=== PATIENT | female | born 1935 | race African-American/Black ===

== ENCOUNTER 2019-01-06 17:51 | Inpatient (IN) | payer MEDICARE, MEDICAID ==
[~2019-01-06] VITALS: Ht 154.9 cm; Wt 62.2 kg
[2019-01-06] VITALS: BP 159/70
[~2019-01-06 17:51] MED LIST: ACET-2178 PO; APIX5TAB PO; ASPIRIN PO; DIAZ5TAB4 PO; DOXY150T9 PO; LATA2.5D2 EACHEYE; LEVO25TA2 PO; Lactaid PO; METO-385 PO; Probiotics PO; ROSU10TA25 PO; VALS160T28 PO; [UNRECOGNIZED DRUG - MIXTURE] PO
[2019-01-06] MEDS ORDERED: ONDANSETRON HCL 4MG/2ML INJ IM ONE (18:30)
[2019-01-06] MEDS ORDERED: MORPHINE SULFATE 4 MG/ML CPJ (NOT FOR IM USE) IV ONE ×2 (18:30→22:00)
[2019-01-06] MEDS ORDERED: MORPHINE SULFATE 4 MG/ML CPJ (NOT FOR IM USE) IV STA ×2 (18:38→20:29)
[2019-01-06] MEDS ORDERED: ONDANSETRON HCL 4MG/2ML INJ IV STA ×2 (18:38→20:29)
[2019-01-06 19:53] LABS: *AMPHETAMINES SCREEN URINE NEGATIVE (NEGATIVE); *BARBITURATES SCREEN URINE NEGATIVE (NEGATIVE); *BENZODIAZEPINES SCREEN URINE NEGATIVE (NEGATIVE); *COCAINE SCREEN URINE NEGATIVE (NEGATIVE)
[2019-01-06 19:54] LABS: CANNABINOID URINE SCREEN NEGATIVE (NEGATIVE); METHADONE URINE SCREEN NEGATIVE (NEGATIVE); OPIATES URINE SCREEN NEGATIVE (NEGATIVE); PHENCYCLIDINE URINE SCREEN NEGATIVE (NEGATIVE)
[2019-01-06 20:08] LABS: HEMATOCRIT. 37.2 % (36.0-48.0); HEMOGLOBIN. 12.6 g/dL (12.0-16.0); MEAN CORPUSCULAR HEMOGLOBIN 33.1 pg (28.0-32.0); MEAN PLATELET VOLUME 10.5 fl (7.4-10.4); PLATELET 176 x1000/uL (130-400); RED BLOOD CELL COUNT 3.79 mill/uL (4.2-5.4); RED CELL DISTRIBUTION WIDTH 13.4 % (11.6-14.6)
[2019-01-06 20:09] LABS: CHLORIDE 107 mEq/L (98-107)
[2019-01-06 20:23] LABS: D-DIMER 0.49 mg/L FEU (<0.50); INR 1.1; PARTIAL THROMBOPLASTIN TIME 32.5 sec (23.4-31.0); PROTHROMBIN TIME 10.8 sec (9.1-11.1)
[2019-01-06 21:10] LABS: PLATELET ESTIMATE NORMAL
[2019-01-06] MEDS ORDERED: HYDROMORPHONE HCL/PF 2MG/ML CPJ IV PRN (23:30)
[2019-01-06] MEDS ORDERED: ACETAMINOPHEN 325MG TABLET PO PRN (23:30)
[2019-01-06] MEDS ORDERED: ONDANSETRON HCL 4MG/2ML INJ IV PRN (23:30)
[2019-01-06] MEDS ORDERED: HYDROCODONE/ACETAMINOPHEN 5/325MG TABLET PO PRN (23:30)
[2019-01-06] MEDS ORDERED: CLONIDINE 0.1MG TABLET PO PRN (23:30)
[2019-01-06] MEDS ORDERED: IPRATROPIUM/ALBUTEROL 0.5-3(2.5)MG/3ML NEB INH PRN (23:30)
[2019-01-06] MEDS ORDERED: DOCUSATE SODIUM 100MG CAPSULE PO PRN (23:30)
[2019-01-06] MEDS ORDERED: MAGNESIUM/ALUMINUM HYDROXIDE/SIMETHICONE 30ML UDC PO PRN (23:30)
[2019-01-07] MEDS ORDERED: DEXTROSE 50% WATER 50ML SYRINGE IV PRN (00:30)
[2019-01-07] MEDS ORDERED: LOSA50TA20 PO (00:31)
[2019-01-07] MEDS ORDERED: DRON400T PO (00:31)
[2019-01-07 00:35] VITALS: BP 159/70
[2019-01-07 04:00] VITALS: BP 146/71
[2019-01-07] MEDS: BLOOD SUGAR DIAGNOSTIC STRIP TEST SCH ×4 (06:33→21:00)
[2019-01-07 07:46] LABS: CHLORIDE 107 mEq/L (98-107)
[2019-01-07] MEDS: INSULIN LISPRO 100 UNITS/ML SUBCUT SCH ×4 (07:50→21:00)
[2019-01-07 08:00] VITALS: BP 132/62
[2019-01-07 08:07] LABS: CREATINE KINASE 201 IU/L (26-192)
[2019-01-07 08:08] LABS: CREATINE KINASE MB FRACTION 2.9 ng/mL (0.5-3.6); LDL CHOLESTEROL 34 mg/dL (5-100)
[2019-01-07 08:09] LABS: HDL CHOLESTEROL 99 mg/dL (40-59)
[2019-01-07 08:13] LABS: BASOPHILS % 0.5 % (0.0-2.0); EOSINOPHILS % 0.3 % (0.0-5.0); HEMATOCRIT. 36.7 % (36.0-48.0); HEMOGLOBIN. 12.3 g/dL (12.0-16.0); MEAN CORPUSCULAR HEMOGLOBIN 32.9 pg (28.0-32.0); MEAN CORPUSCULAR VOLUME 98.1 fL (81.0-99.0); MEAN PLATELET VOLUME 10.4 fl (7.4-10.4); MONOCYTES % 13.8 % (2.0-8.0); NEUTROPHILS % 64.4 % (40.0-76.0); PLATELET 170 x1000/uL (130-400); RED BLOOD CELL COUNT 3.74 mill/uL (4.2-5.4); RED CELL DISTRIBUTION WIDTH 13.5 % (11.6-14.6)
[2019-01-07] MEDS ORDERED: AMLODIPINE 10MG TABLET PO SCH (09:00)
[2019-01-07 12:00] VITALS: BP 129/54
[2019-01-07] MEDS: APIXABAN 5 MG TABLET PO SCH (13:00)
[2019-01-07] MEDS: DIAZEPAM 5 MG TABLET PO SCH ×2 (13:42→17:00)
[2019-01-07] MEDS: LEVOTHYROXINE SODIUM 25MCG TABLET PO SCH (13:42)
[2019-01-07] MEDS: LOSARTAN POTASSIUM 50 MG TABLET PO SCH (13:42)
[2019-01-07 16:00] VITALS: BP 129/54
[2019-01-07 17:21] LABS: CREATINE KINASE 155 IU/L (26-192)
[2019-01-07 17:22] LABS: CREATINE KINASE MB FRACTION 2.3 ng/mL (0.5-3.6)
[2019-01-07 20:21] VITALS: BP 119/64
[2019-01-07] MEDS ORDERED: LATANOPROST 0.005% OPHTH DROPS 2.5ML EACHEYE SCH (21:00)
[2019-01-08 00:03] VITALS: BP 118/62
[2019-01-08 04:00] VITALS: BP 129/55
[2019-01-08 06:10] LABS: HEMATOCRIT. 34.4 % (36.0-48.0); HEMOGLOBIN. 11.8 g/dL (12.0-16.0); MEAN CORPUSCULAR HEMOGLOBIN 33.4 pg (28.0-32.0); MEAN CORPUSCULAR VOLUME 97.6 fL (81.0-99.0); MEAN PLATELET VOLUME 10.8 fl (7.4-10.4); PLATELET 166 x1000/uL (130-400); RED BLOOD CELL COUNT 3.52 mill/uL (4.2-5.4); RED CELL DISTRIBUTION WIDTH 13.5 % (11.6-14.6)
[2019-01-08] MEDS: LEVOTHYROXINE SODIUM 25MCG TABLET PO SCH (06:43)
[2019-01-08] MEDS: BLOOD SUGAR DIAGNOSTIC STRIP TEST SCH ×2 (06:44→12:52)
[2019-01-08] MEDS: INSULIN LISPRO 100 UNITS/ML SUBCUT SCH ×2 (07:11→12:50)
[2019-01-08 07:59] VITALS: BP 121/55
[2019-01-08 08:08] LABS: CHLORIDE 106 mEq/L (98-107)
[2019-01-08 08:15] LABS: LDL CHOLESTEROL 31 mg/dL (5-100)
[2019-01-08 08:17] LABS: HDL CHOLESTEROL 87 mg/dL (40-59)
[2019-01-08] MEDS: DIAZEPAM 5 MG TABLET PO SCH ×2 (08:43→12:52)
[2019-01-08] MEDS: APIXABAN 5 MG TABLET PO SCH (08:43)
[2019-01-08] MEDS: LOSARTAN POTASSIUM 50 MG TABLET PO SCH (08:44)
[2019-01-08 11:15] VITALS: BP 121/55
[2019-01-08 12:10] VITALS: BP 117/64
[2019-01-08 13:12] LABS: PLATELET ESTIMATE NORMAL
== END 2019-01-08 12:40 | disposition home or self-care (01) | DRG 206 ==
LOC: ER 17:51 → 6WST 20:46 → ENRESERV 22:30
PROVIDERS: ADMIT Hospitalist; ATTEND Hospitalist
DX: M94.0 Chondrocostal junction syndrome [Tietze] (principal); D68.59 Other primary thrombophilia; E78.5 Hyperlipidemia, unspecified; I48.0 Paroxysmal atrial fibrillation; E11.9 Type 2 diabetes mellitus without complications; I10 Essential (primary) hypertension; E03.9 Hypothyroidism, unspecified; E78.00 Pure hypercholesterolemia, unspecified; Z79.01 Long term (current) use of anticoagulants; Z82.49 Family history of ischemic heart disease and other diseases of the circulatory system; Z88.6 Allergy status to analgesic agent; Z88.8 Allergy status to other drugs, medicaments and biological substances; Z79.84 Long term (current) use of oral hypoglycemic drugs
CPT/HCPCS: 36415; 71045; 80061; 80305; 82550; 82553; 82962; 83735; 83880; 84443; 84484; 85379; 93005; 93306; 93970; 96374; 96375; 96376; 99285; J1170; J2270; J2405

== ENCOUNTER 2019-07-11 17:04 | Inpatient (IN) | payer MEDICARE, MEDICAID ==
[~2019-07-11] VITALS: Ht 154.9 cm; Wt 66.9 kg
[~2019-07-11 17:04] MED LIST changes: -ACET-2178 PO; -DOXY150T9 PO; +DRON400T PO; +LOSA50TA41 PO; -METO-385 PO; +TOPUD PO; -VALS160T28 PO
[2019-07-11] MEDS ORDERED: ONDANSETRON HCL 4MG/2ML INJ IV STA (17:48)
[2019-07-11] MEDS ORDERED: SODIUM CHLORIDE 0.9% 1,000 ML IV ONE (17:48)
[2019-07-11] MEDS ORDERED: LORAZEPAM 1MG TABLET PO ONE (18:00)
[2019-07-11 18:48] LABS: BASOPHILS % 0.9 % (0.0-2.0); EOSINOPHILS % 0.8 % (0.0-5.0); HEMATOCRIT. 37.3 % (36.0-48.0); HEMOGLOBIN. 12.6 g/dL (12.0-16.0); LYMPHOCYTES % 25.4 % (20.0-50.0); MEAN CORPUSCULAR HEMOGLOBIN 32.9 pg (28.0-32.0); MEAN CORPUSCULAR VOLUME 97.2 fL (81.0-99.0); MEAN PLATELET VOLUME 10.3 fl (7.4-10.4); MONOCYTES % 14.8 % (2.0-8.0); NEUTROPHILS % 58.1 % (40.0-76.0); PLATELET 190 x1000/uL (130-400); RED BLOOD CELL COUNT 3.84 mill/uL (4.2-5.4); RED CELL DISTRIBUTION WIDTH 13.2 % (11.6-14.6)
[2019-07-11 18:50] LABS: CHLORIDE 105 mEq/L (98-107)
[2019-07-11 18:54] LABS: PROTHROMBIN TIME 10.5 sec (9.6-11.0)
[2019-07-11 21:00] VITALS: BP 140/71
[2019-07-11 22:00] VITALS: BP 122/67
[2019-07-11] MEDS ORDERED: CLONIDINE 0.1MG TABLET PO PRN (22:00)
[2019-07-11] MEDS ORDERED: DIPHENHYDRAMINE 50MG/ML VIAL IV PRN (22:00)
[2019-07-11] MEDS ORDERED: ONDANSETRON HCL 4MG/2ML INJ IV PRN (22:00)
[2019-07-11] MEDS ORDERED: MAGNESIUM/ALUMINUM HYDROXIDE/SIMETHICONE 30ML UDC PO PRN (22:00)
[2019-07-11] MEDS ORDERED: LORAZEPAM 2MG/ML CPJ IV PRN (22:00)
[2019-07-11] MEDS ORDERED: IPRATROPIUM/ALBUTEROL 0.5-3(2.5)MG/3ML NEB HHN PRN (22:00)
[2019-07-11] MEDS ORDERED: MORPHINE SULFATE 2 MG/ML CPJ (NOT FOR IM USE) IV PRN (22:00)
[2019-07-11] MEDS ORDERED: DOCUSATE SODIUM 100MG CAPSULE PO PRN (22:00)
[2019-07-11] MEDS ORDERED: GUAIFENESIN 200MG/10ML SUGAR FREE UDC PO PRN (22:00)
[2019-07-11] MEDS ORDERED: NA PHOS,M-B/NA PHOS,DI-BA ENEMA 118ML PR PRN (22:00)
[2019-07-11] MEDS ORDERED: OLME20TA22 PO (23:25)
[2019-07-12] VITALS (15 sets, daily range): BP systolic 95–142; BP diastolic 48–71
[2019-07-12 01:09] LABS: CREATINE KINASE MB FRACTION 5.2 ng/mL (0.5-3.6)
[2019-07-12] MEDS ORDERED: MORPHINE SULFATE 2 MG/ML CPJ (NOT FOR IM USE) IV PRN (01:45)
[2019-07-12] MEDS ORDERED: LORAZEPAM 2MG/ML CPJ IV PRN ×2 (01:45→06:00)
[2019-07-12] MEDS: SODIUM CHLORIDE 0.9% INJ 3ML FLUSH IVF SCH ×3 (05:03→23:23)
[2019-07-12 06:16] LABS: CHLORIDE 107 mEq/L (98-107)
[2019-07-12 06:17] LABS: BASOPHILS % 0.8 % (0.0-2.0); EOSINOPHILS % 0.4 % (0.0-5.0); HEMATOCRIT. 34.8 % (36.0-48.0); HEMOGLOBIN. 11.9 g/dL (12.0-16.0); LYMPHOCYTES % 13.8 % (20.0-50.0); MEAN CORPUSCULAR HEMOGLOBIN 33.7 pg (28.0-32.0); MEAN CORPUSCULAR VOLUME 98.8 fL (81.0-99.0); MEAN PLATELET VOLUME 10.5 fl (7.4-10.4); MONOCYTES % 13.7 % (2.0-8.0); NEUTROPHILS % 71.3 % (40.0-76.0); PLATELET 178 x1000/uL (130-400); RED BLOOD CELL COUNT 3.52 mill/uL (4.2-5.4); RED CELL DISTRIBUTION WIDTH 13.6 % (11.6-14.6)
[2019-07-12 06:23] LABS: CREATINE KINASE 152 IU/L (26-192)
[2019-07-12 06:27] LABS: CREATINE KINASE MB FRACTION 4.9 ng/mL (0.5-3.6)
[2019-07-12] MEDS: ASPIRIN 81MG EC TABLET PO SCH (09:11)
[2019-07-12] MEDS ORDERED: NITROGLYCERIN 50MCG/ML 10ML VIAL (CATH LAB) IV ONE (10:00)
[2019-07-12] MEDS ORDERED: HEPARIN SODIUM 1,000 UNIT/1ML VIAL IV ONE (10:00)
[2019-07-12] MEDS ORDERED: NICARDIPINE 100MCG/ML 10ML VIAL (CATH LAB) IV ONE (10:00)
[2019-07-12] MEDS ORDERED: INFLUENZA VIRUS VACCINE(AFLURIA) 0.5ML SYR IM ONE (10:00)
[2019-07-12] MEDS ORDERED: FENTANYL CITRATE/PF 50MCG/ML 2ML VIAL ONE (12:57)
[2019-07-12] MEDS ORDERED: LIDOCAINE HCL 1% 20ML VIAL (Pyxis) INJ ONE (12:57)
[2019-07-12] MEDS ORDERED: IODIXANOL 320MG/ML 100 ML BOTTLE IV ONE (12:58)
[2019-07-12] MEDS ORDERED: MIDAZOLAM HCL 2 MG/2 ML VIAL ONE ×2 (12:58→13:33)
[2019-07-12] MEDS ORDERED: ACETAMINOPHEN 325MG TABLET PO PRN (14:30)
[2019-07-12] MEDS ORDERED: ATROPINE SULFATE 1MG/10ML SYR IV PRN (14:30)
[2019-07-12] MEDS: AMLODIPINE 2.5MG TABLET PO SCH (21:00)
[2019-07-12] MEDS ORDERED: ATORVASTATIN CALCIUM 40MG TABLET PO SCH (21:00)
[2019-07-13] VITALS (8 sets, daily range): BP systolic 112–133; BP diastolic 65–80
[2019-07-13] MEDS: SODIUM CHLORIDE 0.9% INJ 3ML FLUSH IVF SCH (06:00)
[2019-07-13 06:42] LABS: HEMATOCRIT. 37.9 % (36.0-48.0); HEMOGLOBIN. 12.8 g/dL (12.0-16.0); MEAN CORPUSCULAR HEMOGLOBIN 33.1 pg (28.0-32.0); MEAN CORPUSCULAR VOLUME 98.4 fL (81.0-99.0); MEAN PLATELET VOLUME 11.2 fl (7.4-10.4); PLATELET 167 x1000/uL (130-400); RED BLOOD CELL COUNT 3.85 mill/uL (4.2-5.4); RED CELL DISTRIBUTION WIDTH 13.5 % (11.6-14.6)
[2019-07-13 07:01] LABS: CHLORIDE 107 mEq/L (98-107)
[2019-07-13] MEDS: ASPIRIN 81MG EC TABLET PO SCH (08:46)
[2019-07-13] MEDS: AMLODIPINE 2.5MG TABLET PO SCH ×2 (08:46→08:52)
[2019-07-13 10:51] LABS: PLATELET ESTIMATE NORMAL
== END 2019-07-13 12:05 | disposition home or self-care (01) | DRG 282 ==
LOC: ER 17:04 → 3WST 19:43 → EDBEDREQ 19:46 → EDBEDREQTM 19:46 → EDBEDREQSVC 19:46 → ENRESERV 20:09
PROVIDERS: ADMIT Internal Medicine; ATTEND Internal Medicine
PROC: 4A023N7 Measurement of Cardiac Sampling and Pressure, Left Heart, Percutaneous Approach (ICD-10-PCS; principal; 2019-07-12)
PROC: B2111ZZ Fluoroscopy of Multiple Coronary Arteries using Low Osmolar Contrast (ICD-10-PCS; 2019-07-12)
PROC: B2151ZZ Fluoroscopy of Left Heart using Low Osmolar Contrast (ICD-10-PCS; 2019-07-12)
DX: I21.4 Non-ST elevation (NSTEMI) myocardial infarction (principal); E78.5 Hyperlipidemia, unspecified; M19.90 Unspecified osteoarthritis, unspecified site; I48.0 Paroxysmal atrial fibrillation; I44.7 Left bundle-branch block, unspecified; I25.10 Atherosclerotic heart disease of native coronary artery without angina pectoris; I10 Essential (primary) hypertension; Z79.01 Long term (current) use of anticoagulants; Z79.82 Long term (current) use of aspirin
CPT/HCPCS: 36415; 71045; 80048; 82550; 82553; 83880; 84484; 90686; 93005; 93458; 99291; C1769; C1887; C1893; J1644; J2060; J2250; J2270; J2405; J3010; J3490; J7030; Q9967

== ENCOUNTER 2022-05-22 14:07 | Inpatient (IN) | payer MEDICARE, MEDICAID ==
[~2022-05-22] VITALS: Ht 154.9 cm; Wt 62.6 kg
[~2022-05-22 14:07] MED LIST changes: +LATA2.5D14 EACHEYE; -LATA2.5D2 EACHEYE; +OLME20TA22 PO
[2022-05-22 15:46] LABS: CLARITY URINE CLEAR (CLEAR); COLOR URINE YELLOW (YELLOW); KETONES URINE NEGATIVE (NEGATIVE); LEUKOCYTE ESTERASE URINE NEGATIVE (NEGATIVE); NITRITE URINE NEGATIVE (NEGATIVE); OCCULT BLOOD URINE NEGATIVE (NEGATIVE); PH URINE 7.5 (4.5-8.0); PROTEIN URINE NEGATIVE (NEGATIVE); SPECIFIC GRAVITY URINE 1.005 (1.005-1.030); UROBILINOGEN URINE 0.2 E.U./dL (0.2-1.0)
[2022-05-22 17:08] LABS: BASOPHILS % 0.7 % (0.0-2.0); EOSINOPHILS % 0.4 % (0.0-5.0); HEMATOCRIT. 38.6 % (36.0-48.0); HEMOGLOBIN. 12.8 g/dL (12.0-16.0); LYMPHOCYTES % 19.3 % (20.0-50.0); MEAN CORPUSCULAR HEMOGLOBIN 30.9 pg (28.0-32.0); MEAN CORPUSCULAR VOLUME 93.7 fL (81.0-99.0); MEAN PLATELET VOLUME 10.6 fl (7.4-10.4); MONOCYTES % 14.4 % (2.0-8.0); NEUTROPHILS % 65.2 % (40.0-76.0); PLATELET 211 x1000/uL (130-400); RED BLOOD CELL COUNT 4.13 mill/uL (4.2-5.4); RED CELL DISTRIBUTION WIDTH 14.8 % (11.6-14.6)
[2022-05-22 17:10] LABS: CHLORIDE 101 mEq/L (98-107); PROTHROMBIN TIME 10.9 sec (9.6-11.0)
[2022-05-22] MEDS ORDERED: SODIUM CHLORIDE 0.9% 1,000 ML IV ONE (18:00)
[2022-05-22] MEDS ORDERED: MORPHINE SULFATE 2 MG/ML CPJ (NOT FOR IM USE) IV PRN (22:30)
[2022-05-22] MEDS ORDERED: IPRATROPIUM/ALBUTEROL 0.5-3(2.5)MG/3ML NEB HHN PRN (22:30)
[2022-05-22] MEDS ORDERED: ONDANSETRON HCL 4MG/2ML INJ IV PRN (22:30)
[2022-05-22] MEDS ORDERED: CLONIDINE 0.1MG TABLET PO PRN (22:30)
[2022-05-22] MEDS ORDERED: MAGNESIUM/ALUMINUM HYDROXIDE/SIMETHICONE 30ML UDC PO PRN (22:30)
[2022-05-22] MEDS ORDERED: DIPHENHYDRAMINE 50MG/ML VIAL IV PRN (22:30)
[2022-05-22] MEDS ORDERED: DOCUSATE SODIUM 100MG CAPSULE PO PRN (22:30)
[2022-05-22] MEDS ORDERED: GUAIFENESIN 200MG/10ML SUGAR FREE UDC PO PRN (22:30)
[2022-05-22] MEDS ORDERED: HYDRALAZINE 20MG/ML VIAL IV PRN (22:30)
[2022-05-22] MEDS ORDERED: SODIUM POLYSTYRENE SULFONATE 15 G/60 ML BOT PO NR (22:30)
[2022-05-22] MEDS ORDERED: NALOXONE HCL 0.4MG/ML VIAL IV PRN (22:45)
[2022-05-22] MEDS ORDERED: ACETAMINOPHEN 500MG TABLET PO PRN (23:45)
[2022-05-22] MEDS ORDERED: SODIUM CHLORIDE 0.45% 500 ML IV ONE (23:45)
[2022-05-23] MEDS ORDERED: ACETAMINOPHEN 500MG TABLET PO PRN (00:45)
[2022-05-23] MEDS: APIXABAN 5 MG TABLET PO SCH ×2 (00:50→13:25)
[2022-05-23 00:54] VITALS: BP 149/74
[2022-05-23] MEDS: SODIUM CHLORIDE 0.9% INJ 3ML FLUSH IVF SCH ×3 (06:00→20:44)
[2022-05-23] MEDS: LEVOTHYROXINE SODIUM 25MCG TABLET PO SCH (06:22)
[2022-05-23 07:34] LABS: HEMOGLOBIN. 11.1 g/dL (12.0-16.0); MEAN CORPUSCULAR HEMOGLOBIN 30.8 pg (28.0-32.0); MEAN CORPUSCULAR VOLUME 93.9 fL (81.0-99.0); MEAN PLATELET VOLUME 10.5 fl (7.4-10.4); PLATELET 186 x1000/uL (130-400); RED BLOOD CELL COUNT 3.62 mill/uL (4.2-5.4); RED CELL DISTRIBUTION WIDTH 14.8 % (11.6-14.6)
[2022-05-23 07:44] VITALS: BP 106/67
[2022-05-23 07:46] LABS: CHLORIDE 107 mEq/L (98-107)
[2022-05-23] MEDS ORDERED: ENOXAPARIN 40MG/0.4ML SYR SUBCUT SCH (08:00)
[2022-05-23] MEDS: ASPIRIN 81MG TABLET PO SCH (08:39)
[2022-05-23] MEDS: LOSARTAN POTASSIUM 100 MG TABLET PO SCH ×2 (08:40→09:00)
[2022-05-23 12:00] VITALS: BP 151/84
[2022-05-23] MEDS ORDERED: POTASSIUM CHLORIDE 20MEQ TABLET SR PO NR (12:30)
[2022-05-23] MEDS ORDERED: LOSARTAN POTASSIUM 100 MG TABLET PO SCH (13:00)
[2022-05-23 13:07] LABS: PLATELET ESTIMATE NORMAL
[2022-05-23] MEDS: MULTAQ 400 MG PO SCH ×3 (13:26→20:43)
[2022-05-23] MEDS: AMLODIPINE 2.5MG TABLET PO SCH (13:26)
[2022-05-23] MEDS: OLMESARTAN 20 MG PO SCH (13:27)
[2022-05-23] MEDS: OLMESARTAN 40MG TABLET PO SCH (13:27)
[2022-05-23 16:00] VITALS: BP 132/68
[2022-05-23 20:51] VITALS: BP 158/89
[2022-05-24] VITALS: BP 145/52
[2022-05-24 04:00] VITALS: BP_SYST 127; BP_SYST 128; BP_DIAS 59; BP_DIAS 65
[2022-05-24] MEDS: SODIUM CHLORIDE 0.9% INJ 3ML FLUSH IVF SCH (06:13)
[2022-05-24] MEDS: LEVOTHYROXINE SODIUM 25MCG TABLET PO SCH (06:14)
[2022-05-24 08:00] VITALS: BP 144/54
[2022-05-24] MEDS: APIXABAN 5 MG TABLET PO SCH ×2 (08:33→08:40)
[2022-05-24] MEDS: ASPIRIN 81MG TABLET PO SCH (08:33)
[2022-05-24] MEDS: OLMESARTAN 20 MG PO SCH (08:34)
[2022-05-24] MEDS: OLMESARTAN 40MG TABLET PO SCH (08:34)
[2022-05-24] MEDS: AMLODIPINE 2.5MG TABLET PO SCH (08:34)
[2022-05-24] MEDS: MULTAQ 400 MG PO SCH (08:34)
[2022-05-24] MEDS ORDERED: POTASSIUM CHLORIDE 20MEQ TABLET SR PO NR (10:45)
[2022-05-24 12:00] VITALS: BP 109/50
== END 2022-05-24 17:25 | disposition home or self-care (01) | DRG 74 ==
LOC: ER 14:26 → 8WST 18:36 → ENRESERV 19:54
PROVIDERS: ADMIT Internal Medicine; ATTEND Internal Medicine
DX: G90.9 Disorder of the autonomic nervous system, unspecified (principal); E87.1 Hypo-osmolality and hyponatremia; E03.9 Hypothyroidism, unspecified; E78.5 Hyperlipidemia, unspecified; E87.6 Hypokalemia; F41.1 Generalized anxiety disorder; I10 Essential (primary) hypertension; I48.0 Paroxysmal atrial fibrillation; Z79.01 Long term (current) use of anticoagulants; Z82.49 Family history of ischemic heart disease and other diseases of the circulatory system; I07.1 Rheumatic tricuspid insufficiency; I45.10 Unspecified right bundle-branch block; R53.1 Weakness; M94.0 Chondrocostal junction syndrome [Tietze]
CPT/HCPCS: 36415; 71045; 80053; 81003; 83880; 84443; 84484; 85025; 86850; 86900; 93005; 93306; 93880; 93970; 99285; J7030

== ENCOUNTER 2024-08-30 05:40 | Emergency (ER) | payer MEDICARE, MEDICAID ==
[~2024-08-30] VITALS: Ht 162.6 cm; Wt 62.0 kg
[~2024-08-30 05:40] MED LIST changes: -DIAZ5TAB4 PO; -LATA2.5D14 EACHEYE; -LOSA50TA41 PO; -Lactaid PO; -OLME20TA22 PO; +OLME20TA68 PO; -Probiotics PO; -ROSU10TA25 PO; +SIMV10TA97 PO; -TOPUD PO; -[UNRECOGNIZED DRUG - MIXTURE] PO
[2024-08-30 05:44] VITALS: O2SAT 98
[2024-08-30] MEDS ORDERED: FAMOTIDINE 20MG/2ML VIAL IV ONE (06:00)
[2024-08-30 06:28] VITALS: TEMP 36.72516
[2024-08-30] MEDS: MAGNESIUM/ALUMINUM HYDROXIDE/SIMETHICONE 30ML UDC PO STA (06:39)
[2024-08-30 07:00] LABS: HEMATOCRIT. 34.5 % (36.0-48.0); HEMOGLOBIN. 11.4 g/dL (12.0-16.0); MEAN CORPUSCULAR HEMOGLOBIN 33.1 pg (28.0-32.0); MEAN CORPUSCULAR VOLUME 100.4 fL (81.0-99.0); MEAN PLATELET VOLUME 10.4 fl (7.4-10.4); PLATELET 159 x1000/uL (130-400); RED BLOOD CELL COUNT 3.43 mill/uL (4.2-5.4); RED CELL DISTRIBUTION WIDTH 13.9 % (11.6-14.6); WHITE BLOOD COUNT 5.8 x1000/uL (4.5-11.0)
[2024-08-30 07:10] LABS: DIFFERENTIAL COMMENT 1
[2024-08-30 07:20] LABS: CHLORIDE 108 mEq/L (98-107); POTASSIUM 3.9 mEq/L (3.5-5.1); SODIUM 141 mEq/L (136-145)
[2024-08-30 07:21] LABS: CALCIUM 9.4 mg/dL (8.7-10.4); CARBON DIOXIDE 24 mEq/L (21-32)
[2024-08-30 07:26] LABS: CREATININE 1.2 mg/dL (0.6-1.0); GLUCOSE 82 mg/dL (70-105); UREA NITROGEN BLOOD 23 mg/dL (9-23)
[2024-08-30 07:34] LABS: TROPONIN I HIGH SENSITIVITY 10 ng/L (3.0-34)
[2024-08-30] MEDS: ONDANSETRON HCL 4MG/2ML INJ IV STA (07:54)
[2024-08-30] MEDS: FAMOTIDINE 20MG/2ML VIAL IV NR (08:23)
[2024-08-30 11:00] VITALS: BP 141/69; PULSE 74; RESP 18; O2SAT 97
[2024-08-30 12:54] LABS: PLATELET ESTIMATE NORMAL
== END 2024-08-30 11:30 | disposition left against medical advice (07) ==
LOC: ER 05:40 → EDBEDREQ 09:34 → ER 11:30
DX: R07.89 Other chest pain (principal); I48.91 Unspecified atrial fibrillation; E78.00 Pure hypercholesterolemia, unspecified; Z88.5 Allergy status to narcotic agent; Z79.899 Other long term (current) drug therapy
CPT/HCPCS: 99285; 96374; 71045; 96375; 80048; 85025; 84484; 36415; 93005; J3490; J2405